=== PATIENT | male | born 1985 | race Caucasian/White ===

== ENCOUNTER 2025-06-04 15:38 | Emergency (ER) | payer MEDICAID, SELFPAY ==
[2025-06-04 15:39] VITALS: BP 149/85; PULSE 63; RESP 18; TEMP 37.1; O2SAT 99
[2025-06-04 15:43] VITALS: BMI 25.4
--- NOTE | 2025-06-04 15:58 | PD.EDMEDCL ---
ED Medical Clearance RME/HPI General Chief complaint: Medical Clearance Stated complaint: MEDICAL CLEARENCE Time Seen by Provider: 06/04/25 15:49 Arrival date/time: 06/04/25 15:38 RME / HPI RME / HPI Narrative: 39-year-old male patient came in for evaluation regarding medical clearance. Patient was incarcerated today, and now complaining of lacerations to the left forearm according to him he got cut with glass broken glass, more than 48 hours ago. Denies any pain denies any drainage denies any other complaints. Related Information Previous Rx's ?Medication ?Instructions ?Recorded cyclobenzaprine 10 mg tablet 10 mg PO TID PRN muscle spasm #30 12/12/20 tabs hydrocodone 5 mg-acetaminophen 325 1 tab PO BID PRN pain #4 tabs 12/12/20 mg tablet ibuprofen 800 mg tablet 800 mg PO TID PRN pain #30 tabs 12/12/20 Allergies Allergy/AdvReac Type Severity Reaction Status Date / Time No Known Allergies Allergy Verified 06/04/25 15:54 Review of Systems Review of Systems Narrative Review of Systems: Review of system reviewed and within normal limits except mentioned in HPI ED Exam Narrative Physical exam: VITAL SIGNS: Reviewed. GENERAL APPEARANCE: Alert and interactive, follows commands, no acute distress, HEAD AND FACE: Non-traumatic. ENT: PERRL, pink conjunctivitis, eyelid no trauma, Mucous membrane moist. NECK: Supple, nontender, no nuchal rigidity. CHEST: No tenderness, no crepitus, no paradoxical movement, no retractions. LUNGS: Clear, well ventilated, symmetric, no rales, no wheezing, no ronchi, no stridor, good breath sounds bilaterally. HEART: Regular rate, regular rhythm, no murmur, no gallops. ABDOMEN: Soft, positive bowel sounds, nondistended, no guarding, nontender, no rebound, no masses, RECTAL: Deferred. GENITAL: Deferred. NEUROLOGICAL: Gross motor function intact sensory function intact, Appropriate for age. MUSCULOSKELETAL: low back nontender, full range of motion. EXTREMITIES: +3 centimeter, gaping laceration, with good granulation tissue, no redness of the surrounding, no drainage, nontender, full range of motion. SKIN: Color pink, dry, no rash, no lacerations, no abrasions, no contusions. LYMPHATICS: Deferred. Course Quality Measures none Vital Signs Vital signs: Vital Signs Temperature 98.7 F 06/04/25 15:39 Pulse Rate 63 06/04/25 15:39 Respiratory Rate 18 06/04/25 15:39 Blood Pressure 149/85 H 06/04/25 15:39 Pulse Oximetry (%) 99 06/04/25 15:39 Oxygen Delivery Method Room Air 06/04/25 15:39 Medical Clearance MDM Narrative MDM Narrative:: 39-year-old male patient came in for evaluation regarding medical clearance. Patient was incarcerated today, and now complaining of lacerations to the left forearm according to him he got cut with glass broken glass, more than 48 hours ago. Denies any pain denies any drainage denies any other complaints. Medically cleared for incarceration. Primary repair is noted at this time laceration is more than 48 hours. There is no sign of infection also. Patient was advised to just continue daily dressing and the wound will heal without any problem. Patient data External records reviewed:: None Clinical information provided by:: patient and law enforcement Social determinants that could affect healthcare access:: none Patient has the following chronic illnesses:: None How is presenting disease/condition affected by chronic disease/condition?: no chronic disease Evaluation data The following diagnostics were reviewed and interpreted by me:: other (specify) (None) Lab and/or radiology exams considered but not ordered:: None Interpretation Summary: None Medications / Prescriptions Medications or Prescriptions considered but not ordered:: None none none Medication administrations:: None Consultations Consultation(s) initiated? (list below): No Diagnosis Medical Clearance Differential Diagnosis: other (Wound check, old laceration forearm, medical clearance for incarceration) Most likely diagnosis given after review of the tests above:: Medical clearance for incarceration, wound check Admission Indicated Admission indicated?: not indicated Admission Request Was there a request for admission?: No Disposition Plan Disposition Plan: Discharge Discharge Attestation Discharge Attestation: Patient condition: Stable Discharge Plan Plan Patient Disposition: Custodial/Court/Law Discharge Disposition comment: Stable Prescriptions/Referrals Prescriptions/Med Rec: No Action cyclobenzaprine 10 mg tablet 10 mg PO TID PRN (Reason: muscle spasm) Qty: 30 0RF ibuprofen 800 mg tablet 800 mg PO TID PRN (Reason: pain) Qty: 30 0RF hydrocodone-acetaminophen 5-325 mg tablet 1 tab PO BID MDD 10 PRN (Reason: pain) Qty: 4 0RF Problem List Clinical Impression: Visit for wound check, Medical clearance for incarceration Patient/Caregiver Discharge Instructions Discharge Activity: activity as tolerated Education Materials: ED Wound Care Additional Instructions: Thank you for the opportunity for serving you today. You are stable for discharged . You are advised to: Follow-up with your PCP in 1 to 2 days once you get out of [facility] Return to ED for worsening of symptoms Increase oral fluids Your wound is healing, there is no sign of infection, only need to do is change the dressing every day probably in 2 weeks your wound will totally closed without suturing. We cannot place a suture at this time the wound is more than 24 hours. Print Language: Tristanian Stand Alone Forms: [facility]on Award Info., Patient Portal Info Letter CARINE/PATTI Supervising Physician CARINE/PATTI Supervising Physician: MD Beverly
== END 2025-06-04 16:06 ==
PROVIDERS: Emergency Provider Family Medicine
DX: Z02.89 Encounter for other administrative examinations (principal); S51.812A Laceration without foreign body of left forearm, initial encounter; Z65.3 Problems related to other legal circumstances; W25.XXXA Contact with sharp glass, initial encounter
CPT/HCPCS: 99281